=== PATIENT | female | born 1980 | race Caucasian/White ===

== ENCOUNTER → 2020-04-25 | Outpatient (CLI) | payer OTHER ==
[~2020-04-25] MED LIST: ALLEGRA ALLERG180 MG PO; AZELASTINE205.5 MCG/; BUSPIRONE HCL15 MG PO; CLOBETASOL EMO100 GM TP; DERMACINRX5000 UNI1 PO; FERROUS GLUCON324 M1 PO; GLUCOPHAGE 500500 MG PO; IBU600 MG PO; LEXAPRO10 MG PO; NORCO 5-325 TA1 EACH PO; ONE A DAY PREN1 EACH PO; OZEMPIC0.25 MG/0. SQ; PATADAY5 ML OP; SPRINTEC 28 DA1 EACH PO; VITAMIN B-121000 MC3 IM; VITAMIN C500 M4 PO
== END ==
LOC: LAB 12:22
DX: C73 Malignant neoplasm of thyroid gland (principal)
CPT/HCPCS: 36415; 82310